=== PATIENT | male | born 1960 | race Two or more races ===

== ENCOUNTER → 2023-07-13 | Outpatient (CLI) | payer OTHER ==
[2023-07-13 18:46] LABS: ALT 17 U/L (10-49); AST 18 U/L (14-35); Albumin 4.2 g/dL (3.8-4.9); Albumin/Globulin Ratio 1.91 Ratio (1.60-3.17); Alkaline Phosphatase 72 U/L (41-126); BUN/Creat Ratio 8.78 Ratio (12.00-20.00); Blood Urea Nitrogen 7.9 mg/dL (9.0-27.0); Calcium 9.4 mg/dL (8.7-10.3); Carbon Dioxide 25.9 mmol/L (21.6-31.8); Chloride 96 mmol/L (96-109); Globulin 2.2 g/dL (1.6-3.3); Glucose 99 mg/dL (70-110); Potassium 4.1 mmol/L (3.5-5.5); Sodium 134 mmol/L (135-145); Total Bilirubin 0.5 mg/dL (0.3-1.2); Total Protein 6.4 g/dL (6.2-8.2)
[2023-07-13 19:31] LABS: Appearance,Urine Clear (Clear); Bilirubin,Urine Negative (Negative); Blood,Urine Negative (Negative); Color,Urine Yellow (Yellow); Ketones,Urine Negative (Negative); Nitrite,Urine Negative (Negative); Urobilinogen,Urine 0.2 E.U./DL
[2023-07-13 19:38] LABS: Bacteria,Urine None Seen (None Seen)
== END | disposition home or self-care (01) ==
LOC: LABWHC1 12:19
PROVIDERS: ATTEND Nurse Practitioner Family
DX: E87.1 Hypo-osmolality and hyponatremia (principal); N39.0 Urinary tract infection, site not specified
CPT/HCPCS: 36415; 80053; 81001; 83930; 83935; 84300

== ENCOUNTER 2025-02-06 12:59 | Emergency (ER) | payer OTHER ==
[2025-02-06 13:11] LABS: Glucose,Whole Blood 115 mg/dL (70-110)
[2025-02-06 13:42] LABS: Basophils # (A) 0.05 10*3/uL (0.00-0.10); Basophils % (A) 0.4 %; Eosinophils # (A) 0.05 10*3/uL (0.04-0.35); Eosinophils % (A) 0.4 %; HCT 37.2 % (39.6-50.0); HGB 13.8 g/dL (13.0-17.0); Lymphocytes # (A) 1.15 10*3/uL (0.90-5.00); Lymphocytes % (A) 8.1 %; MCH 30.3 pg (27.0-32.0); MCHC 37.1 g/dL (32.0-37.0); MCV 81.6 fL (80.0-97.0); Mean Platelet Volume 10.3 fL (9.5-12.2); Monocytes # (A) 1.42 10*3/uL (0.20-1.00); Neutrophils # (A) 11.26 10*3/uL (1.80-7.70); Neutrophils % (A) 79.3 %; Platelet Count 314 10*3/uL (140-440); RBC 4.56 10*6/uL (4.40-5.60); RDW 11.7 % (11.5-14.5); WBC 14.19 10*3/uL (4.50-10.00)
--- NOTE | 2025-02-06 13:43 | ED ---
Altered Mental Status HPI - General Source: patient, family, RN notes reviewed Mode of arrival: ambulatory Limitations: no limitations <Federico Lees - Last Filed: 02/06/25 13:42> - General Source: patient, family, RN notes reviewed Mode of arrival: ambulatory Limitations: no limitations - History of Present Illness MD Complaint: confusion <Gabriela Fuller - Last Filed: 02/06/25 19:32> - General Chief Complaint: Altered Mental Status Stated Complaint: N/V/Confusion Time Seen by Provider: 02/06/25 13:15 - History of Present Illness Initial Comments: Quick note 64-year-old male presents emergency department with chief complaint of increasing belching, nausea, episode of vomiting and confusion. Patient symptoms have been on and off last week was seen by PCP told there was he more likely just had a common cold there was no evidence of UTI. Patient states symptoms have worsened within the hour states that he has had some increasing confusion. Denies any chest pain shortness of breath headache or dizziness. (Federico Lees) This is a 64-year-old male who presents to the emergency department for nausea, vomiting, and confusion. States that he has been dealing with nausea and vomiting for the last couple of days. He last threw up this morning, but does not currently feel nauseous. Denies any abdominal pain. Family is concerned that he has been somewhat confused. Patient is alert and oriented x 4. They state that he just seems to be walking off in conversation like he is not interested. Patient states that he does not feel confused but does admit to doing this. Denies any headaches or visual changes. Denies any chest pain or shortness of breath. (Gabriela Fuller) - Related Data Allergies Allergy/AdvReac Type Severity Reaction Status Date / Time No Known Allergies Allergy Verified 02/06/25 13:11 Review of Systems ROS Other: All systems not noted in ROS Statement are negative. <Federico Lees - Last Filed: 02/06/25 13:42> ROS Other: All systems not noted in ROS Statement are negative. <Gabriela Fuller - Last Filed: 02/06/25 19:32> ROS Statement: Those systems with pertinent positive or pertinent negative responses have been documented in the HPI. Past Medical History Past Medical History: Renal Disease History of Any Multi-Drug Resistant Organisms: None Reported Past Surgical History: No Surgical Hx Reported Past Psychological History: No Psychological Hx Reported Smoking Status: Never smoker Past Alcohol Use History: None Reported Past Drug Use History: None Reported <Federico Lees - Last Filed: 02/06/25 13:42> General Exam Limitations: no limitations <Federico Lees - Last Filed: 02/06/25 13:42> Limitations: no limitations General appearance: alert, in no apparent distress Head exam: Present: atraumatic, normocephalic, normal inspection Eye exam: Present: normal appearance, PERRL, EOMI. Absent: scleral icterus, conjunctival injection, periorbital swelling Respiratory exam: Present: normal lung sounds bilaterally. Absent: respiratory distress, wheezes, rales, rhonchi, stridor Cardiovascular Exam: Present: regular rate, normal rhythm GI/Abdominal exam: Present: soft, normal bowel sounds. Absent: distended, tenderness, guarding, rebound, rigid Neurological exam: Present: alert, oriented X3, CN II-XII intact Psychiatric exam: Present: normal affect, normal mood Skin exam: Present: warm, dry, intact, normal color. Absent: rash <Gabriela Fuller - Last Filed: 02/06/25 19:32> - General Exam Comments Initial Comments: Visual Physical Exam Vital signs reviewed General: Well-appearing, nontoxic, no acute distress. Head: Normocephalic, atraumatic Eyes: PERRLA, EOMI ENT: Airway patent Chest: Nonlabored breathing Skin: No visual rash, normal skin tone Neuro: Alert and oriented 3 Musculoskeletal: No gross abnormalities (Federico Lees) Course Vital Signs 02/06/25 02/06/25 02/06/25 13:04 16:11 17:55 Temperature 98.3 F 98.5 F Pulse Rate 125 H 99 95 Respiratory 18 18 18 Rate Blood Pressure 110/79 125/80 113/72 O2 Sat by Pulse 98 95 95 Oximetry Medical Decision Making - Lab Data Result diagrams: 02/06/25 13:33 <Federico Lees - Last Filed: 02/06/25 13:42> - Lab Data Result diagrams: 02/06/25 13:33 02/06/25 13:33 - Radiology Data Radiology results: report reviewed, image reviewed <Gabriela Fuller - Last Filed: 02/06/25 19:32> - Medical Decision Making I completed the quick note portion of this chart signed Federico Lees PA-C (Federico Lees) This is a 64-year-old male who presents to the emergency department for nausea/vomiting and some confusion. Was pt. sent in by a medical professional or institution? @ -No Did you speak to anyone other than the patient for history? @ -Yes, family member advised that he seems somewhat confused in conversation. Did you review nursing and triage notes? @ -Yes, and I agree, it is accurate with regards to the patient's symptoms. Were old charts reviewed? @ -No Differential Diagnosis? @ -Differential Nausea and Vomiting: Gastroenteritis, cholecystitis, appendicitis, pancreatitis, migraine, benign positional vertigo, food borne illness, pyelonephritis, irritable bowel syndrome, influenza, Covid, GERD, incarcerated hernia, intestinal obstruction, this is not meant to be an all-inclusive list. EKG interpreted by me (3pts min.)? @ -EKG interpreted by me demonstrating the following: Sinus tachycardia. Ventricular rate 120 bpm, MA interval 126 ms, QRS duration 119 ms, QTc 477 ms. X-rays interpreted by me (1pt min.)? @ -Chest x-ray obtained, my interpretation identifies no localized consolidations or infiltrates. CT interpreted by me (1pt min.)? @ -CT scan of the brain obtained. My interpretation identifies no acute intracranial hemorrhage or mass effect. U/S interpreted by me (1pt. min.)? @ -Not obtained What testing was considered but not performed? (CT, X-rays, U/S, labs)? Why? @ -None What meds were considered but not given? Why? @ -None Did you discuss the management of the patient with other professionals? @ -No Did you reconcile home meds? @ -No Was smoking cessation discussed for >3mins.? @ -No Was critical care preformed (if so, how long)? @ -No Were there social determinants of health that impacted care today? How? (Homelessness, low income, unemployed, alcoholism, drug addiction, transportation, low edu. Level, literacy, decrease access to med. care, residential, rehab)? @ -No Was there de-escalation of care discussed even if they declined? (Discuss DNR or withdrawal of care, Hospice)? @ -No What co-morbidities impacted this encounter? (DM, HTN, Smoking, COPD, CAD, Cancer, CVA, Hep., AIDS, mental health diagnosis, sleep apnea, morbid obesity)? @ -None Was patient admitted / discharged? @ -Discharged. Lab work demonstrates leukocytosis with a white blood cell count of 14.19. He also has hyponatremia with a sodium of 127 and some signs of dehydration with a BUN of 36. Urinalysis not suggestive of infection. Chest x- ray reveals no acute process. CT scan of the brain obtained revealing no acute findings. We discussed that the hyponatremia can contribute to confusion. 1 L of normal saline administered. Given the hyponatremia with confusion I recommended admission for further management. However, patient declined. He states that he has had problems with hyponatremia in the past and would rather just follow-up with his PCP about this. Patient was alert and oriented x 4 at the time of ED evaluation. He was given very strict return parameters and advis ed to have very close follow-up with his PCP. Family advised that they are also comfortable taking him home and not overly concerned about this value. Patient discharged home in stable condition. Case discussed with ED attending Dr. Barnhart. Return precautions reviewed in depth, the patient is instructed to return to the emergency department with any new, worsening, or concerning symptoms. Patient verbalized understanding. Undiagnosed new problem with uncertain prognosis? @ -None Drug Therapy requiring intensive monitoring for toxicity (Heparin, Nitro, Insulin, Cardizem)? @ -None Were any procedures done? @ -None Diagnosis/symptom? @ -Hyponatremia, confusion Acute, or Chronic, or Acute on Chronic? @ -Acute Uncomplicated (without systemic symptoms) or Complicated (systemic symptoms)? @ -Uncomplicated Side effects of treatment? @ -None Exacerbation, Progression, or Severe Exacerbation] @ -Not applicable Poses a threat to life or bodily function? @ -Unclear (Gabriela Fuller) - Lab Data Lab Results 02/06/25 02/06/25 02/06/25 Range/Units 13:10 13:33 13:33 WBC 14.19 H (4.50-10.00) 10*3/uL RBC 4.56 (4.40-5.60) 10*6/uL Hgb 13.8 (13.0-17.0) g/dL Hct 37.2 L (39.6-50.0) % MCV 81.6 (80.0-97.0) fL MCH 30.3 (27.0-32.0) pg MCHC 37.1 H (32.0-37.0) g/dL Plt Count 314 (140-440) 10*3/uL MPV 10.3 (9.5-12.2) fL Immature Gran % (Auto) 1.8 % Neutrophils % 79.3 % Lymphocytes % 8.1 % Monocytes % 10.0 % Eosinophils % 0.4 % Basophils % 0.4 % Immature Gran # 0.26 H (0.00-0.04) 10*3/uL Neutrophils # 11.26 H (1.80-7.70) 10*3/uL Lymphocytes # 1.15 (0.90-5.00) 10*3/uL Monocytes # 1.42 H (0.20-1.00) 10*3/uL Eosinophils # 0.05 (0.04-0.35) 10*3/uL Basophils # 0.05 (0.00-0.10) 10*3/uL PT (10.0-12.5) sec INR (<1.2) APTT (22.0-30.0) sec Sodium 127 L (137-145) mmol/L Potassium 3.6 (3.5-5.1) mmol/L Chloride 86 L (98-107) mmol/L Carbon Dioxide 28 (22-30) mmol/L Anion Gap 13 mmol/L BUN 36 H (9-20) mg/dL Creatinine 0.73 (0.66-1.25) mg/dL Est GFR (CKD-EPI)AfAm >90 (>60 ml/min/1.73 sqM) Est GFR (CKD-EPI)NonAf >90 (>60 ml/min/1.73 sqM) Glucose 118 H (74-99) mg/dL POC Glucose (mg/dL) 115 H (70-110) mg/dL POC Glu Detail Supervisor ID Doe Patterson Plasma Lactic Acid [place] (0.7-2.0) mmol/L Calcium 9.1 (8.4-10.2) mg/dL Magnesium (1.6-2.3) mg/dL Total Bilirubin 1.4 H (0.2-1.3) mg/dL AST 25 (17-59) U/L ALT 34 (4-49) U/L Alkaline Phosphatase 78 (38-126) U/L Troponin I (0.000-0.034) ng/mL Total Protein 6.1 L (6.3-8.2) g/dL Albumin 3.2 L (3.5-5.0) g/dL Urine Color Urine Appearance (Clear) Urine pH (5.0-8.0) Ur Specific [place] (1.001-1.035) Urine Protein (Negative) Urine Glucose (UA) (Negative) Urine Ketones (Negative) Urine Blood (Negative) Urine Nitrite (Negative) Urine Bilirubin (Negative) Urine Urobilinogen (<2.0) mg/dL Ur Leukocyte Esterase (Negative) Urine RBC (0-5) /hpf Urine WBC (0-5) /hpf Hyaline Casts (0-2) /lpf Urine Mucus (None) /hpf Urine Opiates Screen (NotDetected) Ur Oxycodone Screen (NotDetected) Urine Methadone Screen (NotDetected) Ur Barbiturates Screen (NotDetected) U Tricyclic Antidepress (NotDetected) Ur Phencyclidine Scrn (NotDetected) Ur Amphetamines Screen (NotDetected) U Methamphetamines Scrn (NotDetected) U Benzodiazepines Scrn (NotDetected) Urine Cocaine Screen (NotDetected) U Marijuana (THC) Screen (NotDetected) 02/06/25 02/06/25 02/06/25 Range/Units 13:33 13:33 15:42 WBC (4.50-10.00) 10*3/uL RBC (4.40-5.60) 10*6/uL Hgb (13.0-17.0) g/dL Hct (39.6-50.0) % MCV (80.0-97.0) fL MCH (27.0-32.0) pg MCHC (32.0-37.0) g/dL Plt Count (140-440) 10*3/uL MPV (9.5-12.2) fL Immature Gran % (Auto) % Neutrophils % % Lymphocytes % % Monocytes % % Eosinophils % % Basophils % % Immature Gran # (0.00-0.04) 10*3/uL Neutrophils # (1.80-7.70) 10*3/uL Lymphocytes # (0.90-5.00) 10*3/uL Monocytes # (0.20-1.00) 10*3/uL Eosinophils # (0.04-0.35) 10*3/uL Basophils # (0.00-0.10) 10*3/uL PT 13.0 H (10.0-12.5) sec INR 1.2 H (<1.2) APTT 21.6 L (22.0-30.0) sec Sodium (137-145) mmol/L Potassium (3.5-5.1) mmol/L Chloride (98-107) mmol/L Carbon Dioxide (22-30) mmol/L Anion Gap mmol/L BUN (9-20) mg/dL Creatinine (0.66-1.25) mg/dL Est GFR (CKD-EPI)AfAm (>60 ml/min/1.73 sqM) Est GFR (CKD-EPI)NonAf (>60 ml/min/1.73 sqM) Glucose (74-99) mg/dL POC Glucose (mg/dL) (70-110) mg/dL POC Glu Detail Supervisor ID Plasma Lactic Acid [place] (0.7-2.0) mmol/L Calcium (8.4-10.2) mg/dL Magnesium 2.0 (1.6-2.3) mg/dL Total Bilirubin (0.2-1.3) mg/dL AST (17-59) U/L ALT (4-49) U/L Alkaline Phosphatase (38-126) U/L Troponin I <0.012 (0.000-0.034) ng/mL Total Protein (6.3-8.2) g/dL Albumin (3.5-5.0) g/dL Urine Color Urine Appearance (Clear) Urine pH (5.0-8.0) Ur Specific [place] (1.001-1.035) Urine Protein (Negative) Urine Glucose (UA) (Negative) Urine Ketones (Negative) Urine Blood (Negative) Urine Nitrite (Negative) Urine Bilirubin (Negative) Urine Urobilinogen (<2.0) mg/dL Ur Leukocyte Esterase (Negative) Urine RBC (0-5) /hpf Urine WBC (0-5) /hpf Hyaline Casts (0-2) /lpf Urine Mucus (None) /hpf Urine Opiates Screen (NotDetected) Ur Oxycodone Screen (NotDetected) Urine Methadone Screen (NotDetected) Ur Barbiturates Screen (NotDetected) U Tricyclic Antidepress (NotDetected) Ur Phencyclidine Scrn (NotDetected) Ur Amphetamines Screen (NotDetected) U Methamphetamines Scrn (NotDetected) U Benzodiazepines Scrn (NotDetected) Urine Cocaine Screen (NotDetected) U Marijuana (THC) Screen (NotDetected) 02/06/25 02/06/25 Range/Units 15:42 16:18 WBC (4.50-10.00) 10*3/uL RBC (4.40-5.60) 10*6/uL Hgb (13.0-17.0) g/dL Hct (39.6-50.0) % MCV (80.0-97.0) fL MCH (27.0-32.0) pg MCHC (32.0-37.0) g/dL Plt Count (140-440) 10*3/uL MPV (9.5-12.2) fL Immature Gran % (Auto) % Neutrophils % % Lymphocytes % % Monocytes % % Eosinophils % % Basophils % % Immature Gran # (0.00-0.04) 10*3/uL Neutrophils # (1.80-7.70) 10*3/uL Lymphocytes # (0.90-5.00) 10*3/uL Monocytes # (0.20-1.00) 10*3/uL Eosinophils # (0.04-0.35) 10*3/uL Basophils # (0.00-0.10) 10*3/uL PT (10.0-12.5) sec INR (<1.2) APTT (22.0-30.0) sec Sodium (137-145) mmol/L Potassium (3.5-5.1) mmol/L Chloride (98-107) mmol/L Carbon Dioxide (22-30) mmol/L Anion Gap mmol/L BUN (9-20) mg/dL Creatinine (0.66-1.25) mg/dL Est GFR (CKD-EPI)AfAm (>60 ml/min/1.73 sqM) Est GFR (CKD-EPI)NonAf (>60 ml/min/1.73 sqM) Glucose (74-99) mg/dL POC Glucose (mg/dL) (70-110) mg/dL POC Glu Detail Supervisor ID Plasma Lactic Acid [place] 1.8 (0.7-2.0) mmol/L Calcium (8.4-10.2) mg/dL Magnesium (1.6-2.3) mg/dL Total Bilirubin (0.2-1.3) mg/dL AST (17-59) U/L ALT (4-49) U/L Alkaline Phosphatase (38-126) U/L Troponin I (0.000-0.034) ng/mL Total Protein (6.3-8.2) g/dL Albumin (3.5-5.0) g/dL Urine Color Yellow Urine Appearance Clear (Clear) Urine pH 6.0 (5.0-8.0) Ur Specific [place] 1.026 (1.001-1.035) Urine Protein 1+ H (Negative) Urine Glucose (UA) Negative (Negative) Urine Ketones 1+ H (Negative) Urine Blood Negative (Negative) Urine Nitrite Negative (Negative) Urine Bilirubin Negative (Negative) Urine Urobilinogen 2.0 (<2.0) mg/dL Ur Leukocyte Esterase Negative (Negative) Urine RBC 2 (0-5) /hpf Urine WBC 8 H (0-5) /hpf Hyaline Casts 4 H (0-2) /lpf Urine Mucus Occasional H (None) /hpf Urine Opiates Screen Not Detected (NotDetected) Ur Oxycodone Screen Not Detected (NotDetected) Urine Methadone Screen Not Detected (NotDetected) Ur Barbiturates Screen Not Detected (NotDetected) U Tricyclic Antidepress Not Detected (NotDetected) Ur Phencyclidine Scrn Not Detected (NotDetected) Ur Amphetamines Screen Not Detected (NotDetected) U Methamphetamines Scrn Not Detected (NotDetected) U Benzodiazepines Scrn Detected H (NotDetected) Urine Cocaine Screen Not Detected (NotDetected) U Marijuana (THC) Screen Not Detected (NotDetected) Disposition <Federico Lees - Last Filed: 02/06/25 13:42> Is patient prescribed a controlled substance at d/c from ED?: No Time of Disposition: 19:02 <Gabriela Fuller - Last Filed: 02/06/25 19:32> Clinical Impression: Hyponatremia, Confusion Disposition: HOME SELF-CARE Instructions (If sedation given, give patient instructions): Hyponatremia (ED) Additional Instructions: Return to the emergency department with any new, worsening, or concerning symptoms. Follow up with your primary care provider in 1-2 days. Referrals: Nonstaff,Physician [REFERRING] - 1-2 days
[2025-02-06 14:03] LABS: ALT 34 U/L (4-49); AST 25 U/L (17-59); African American GFR (CKD) >90 (>60 ml/min/1.73 sqM); Albumin 3.2 g/dL (3.5-5.0); Alkaline Phosphatase 78 U/L (38-126); Anion Gap 13 mmol/L; Blood Urea Nitrogen 36 mg/dL (9-20); Calcium 9.1 mg/dL (8.4-10.2); Carbon Dioxide 28 mmol/L (22-30); Chloride 86 mmol/L (98-107); Glucose 118 mg/dL (74-99); Non-African American GFR(CKD) >90 (>60 ml/min/1.73 sqM); Potassium 3.6 mmol/L (3.5-5.1); Sodium 127 mmol/L (137-145); Total Bilirubin 1.4 mg/dL (0.2-1.3); Total Protein 6.1 g/dL (6.3-8.2)
--- NOTE | 2025-02-06 14:32 | XR ---
EXAMINATION TYPE: XR chest 2V DATE OF EXAM: 02/06/2025 2:12 PM COMPARISON: None CLINICAL INDICATION: Male, 64 years old with history of altered mental status; [facility] TECHNIQUE: XR chest 2V Frontal and lateral views of the chest. FINDINGS: Lungs/Pleura: There is no evidence of pleural effusion, focal consolidation, or pneumothorax. Right midlung fissure noted. Pulmonary vascularity: Unremarkable. Heart/mediastinum: Cardiomediastinal silhouette is unremarkable. Musculoskeletal: No acute osseous pathology. IMPRESSION: No acute cardiopulmonary disease/process. [facility], , 02/06/2025 2:30 PM
[2025-02-06] MEDS: SODIUM CHLORIDE 0.9% 1,000 ML IV ONE (16:17)
[2025-02-06 16:37] LABS: INR 1.2 (<1.2); Partial Thromboplastin Time 21.6 sec (22.0-30.0)
[2025-02-06 17:45] LABS: Appearance,Urine Clear (Clear); Bilirubin,Urine Negative (Negative); Blood,Urine Negative (Negative); Color,Urine Yellow; Glucose,Urine (UA) Negative (Negative); Hyaline Casts,Urine 4 /lpf (0-2); Ketones,Urine 1+ (Negative); Leukocyte Esterase,Urine Negative (Negative); Mucus,Urine Occasional /hpf; Nitrite,Urine Negative (Negative); Protein,Urine 1+ (Negative); RBC,Urine 2 /hpf (0-5); Specific Gravity,Urine 1.026 (1.001-1.035); WBC,Urine 8 /hpf (0-5)
[2025-02-06 17:47] LABS: Amphetamine Screen,Urine Not Detected (NotDetected); Barbiturate Screen,Urine Not Detected (NotDetected); Benzodiazepines Screen,Urine Detected (NotDetected); Cocaine Screen,Urine Not Detected (NotDetected); Methadone Screen, Urine Not Detected (NotDetected); Opiate Screen,Urine Not Detected (NotDetected); Oxycodone Screen, Urine Not Detected (NotDetected); Phencyclidine Screen,Urine Not Detected (NotDetected); Tricyclic Antidepressant,Urine Not Detected (NotDetected); Urn Cannabinoid Scrn Not Detected (NotDetected)
[2025-02-06 17:57] VITALS: TEMP 98.5
--- NOTE | 2025-02-06 18:48 | CT ---
EXAMINATION TYPE: CT brain wo con CT DLP: 1097.9 mGycm, Automated exposure control for dose reduction was used. DATE OF EXAM: 02/06/2025 6:36 PM COMPARISON: None. CLINICAL INDICATION:Male, 64 years old with history of Confusion, ams, confusion TECHNIQUE: Brain: Axial CT images of the brain were obtained with coronal and sagittal reformats created and rev iewed. Contrast used: None. Oral contrast used: None. FINDINGS: Brain: Extra-axial spaces: No abnormal extra-axial fluid collections. Ventricular system: Dilatation in proportion to cerebral atrophy. Cerebral parenchyma: Cerebral atrophy. No acute intraparenchymal hemorrhage or mass effect. The hayes -white junction is well differentiated. Cerebellum: Unremarkable. Mass effect: No evidence of midline shift. Intracranial vasculature: Atherosclerotic calcifications of the intracranial vessels. Soft tissues: Normal. Calvarium/osseous structures: No depressed skull fracture. Paranasal sinuses and mastoid air cells: Mild scattered paranasal sinus disease. Visualized orbits: Bilateral aphakia IMPRESSION: No acute intracranial process. [facility], , 02/06/2025 6:46 PM
[2025-02-06 19:29] VITALS: BP 106/74; PULSE 98; RESP 20
== END 2025-02-06 19:29 | disposition home or self-care (01) ==
LOC: EC 12:59
DX: E87.1 Hypo-osmolality and hyponatremia (principal); R41.0 Disorientation, unspecified
CPT/HCPCS: 36415; 70450; 71046; 80053; 80306; 81001; 83605; 83735; 84484; 85025; 85610; 85730; 93005; 96360; 96361; 99285

== ENCOUNTER 2025-02-07 21:11 | Emergency (ER) | payer OTHER ==
[2025-02-07 21:34] LABS: Basophils # (A) 0.08 10*3/uL (0.00-0.10); Basophils % (A) 0.7 %; Eosinophils # (A) 0.14 10*3/uL (0.04-0.35); Eosinophils % (A) 1.2 %; HCT 36.5 % (39.6-50.0); HGB 13.0 g/dL (13.0-17.0); Lymphocytes # (A) 1.53 10*3/uL (0.90-5.00); Lymphocytes % (A) 13.1 %; MCH 30.0 pg (27.0-32.0); MCHC 35.6 g/dL (32.0-37.0); MCV 84.1 fL (80.0-97.0); Monocytes # (A) 1.35 10*3/uL (0.20-1.00); Monocytes % (A) 11.6 %; Neutrophils # (A) 7.98 10*3/uL (1.80-7.70); Neutrophils % (A) 68.4 %; Platelet Count 340 10*3/uL (140-440); RBC 4.34 10*6/uL (4.40-5.60); RDW 11.9 % (11.5-14.5); WBC 11.66 10*3/uL (4.50-10.00)
[2025-02-07 21:56] LABS: ALT 24 U/L (4-49); AST 23 U/L (17-59); African American GFR (CKD) >90 (>60 ml/min/1.73 sqM); Albumin 2.9 g/dL (3.5-5.0); Alkaline Phosphatase 70 U/L (38-126); Amylase 59 U/L (30-110); Anion Gap 10 mmol/L; Blood Urea Nitrogen 20 mg/dL (9-20); Calcium 8.6 mg/dL (8.4-10.2); Carbon Dioxide 27 mmol/L (22-30); Chloride 92 mmol/L (98-107); Glucose 113 mg/dL (74-99); Lipase 222 U/L (23-300); Non-African American GFR(CKD) >90 (>60 ml/min/1.73 sqM); Potassium 3.4 mmol/L (3.5-5.1); Sodium 129 mmol/L (137-145); Total Protein 5.6 g/dL (6.3-8.2)
--- NOTE | 2025-02-07 21:58 | ED ---
Abdominal Pain HPI - General Source: patient, RN notes reviewed Mode of arrival: ambulatory Limitations: no limitations <Carlos Alberto Villasenor - Last Filed: 02/07/25 21:56> <Jigna Bower - Last Filed: 02/08/25 09:08> - General Chief Complaint: Abdominal Pain Stated Complaint: Abd Pain Time Seen by Provider: 02/07/25 21:28 - History of Present Illness Initial Comments: Quick note: This is a 64-year-old male with history of renal disease presenting for abdominal pain x 3 days. Patient also endorses confusion/lethargy with nausea/vomiting. Endorses history of urinary catheterization, UTI and urinary retention as well as hyponatremia. Patient was seen in this ER yesterday with diagnosis of dehydration and hyponatremia. (Carlos Alberto Villasenor) Patient is a 64-year-old gentleman presenting today for nausea and vomiting for 3 days. History given by patient and caregivers who brought patient to the ER. Patient states whenever he attempts to eat he feels nauseas and sometimes throws up. Currently denies abdominal pain. Emesis is NBNB. Patient has been able to keep down liquids and most of his medications. He denies any chest pain or shortness of breath. Last BM was yesterday and was a normal soft stool for the patient. Stools are nonmelanotic, denies hematochezia. Denies dysuria, frequency or hematuria. No fevers. Denies dizizness, numbness or weakness. Was seen yesterday and was told he was dehydation, given IV fluids and ultimately discharged home. No prior abdominal surgeries. Patient is currently oriented x4 and would like to go home. (Jigna Bower) - Related Data Previous Rx's Medication Instructions Recorded Cephalexin [Keflex] 500 mg PO Q6HR 10 Days #40 cap 02/08/25 Allergies Allergy/AdvReac Type Severity Reaction Status Date / Time No Known Allergies Allergy Verified 02/07/25 21:14 Review of Systems ROS Other: All systems not noted in ROS Statement are negative. <Carlos Alberto Villasenor - Last Filed: 02/07/25 21:56> ROS Other: All systems not noted in ROS Statement are negative. <Jigna Bower - Last Filed: 02/08/25 09:08> ROS Statement: Those systems with pertinent positive or pertinent negative responses have been documented in the HPI. Past Medical History Past Medical History: Renal Disease History of Any Multi-Drug Resistant Organisms: None Reported Past Surgical History: No Surgical Hx Reported Past Psychological History: No Psychological Hx Reported Smoking Status: Never smoker Past Alcohol Use History: None Reported Past Drug Use History: None Reported <Carlos Alberto Villasenor - Last Filed: 02/07/25 21:56> General Exam Limitations: no limitations <Jw Villasenorling - Last Filed: 02/07/25 21:56> <Jigna Bower - Last Filed: 02/08/25 09:08> - General Exam Comments Initial Comments: Visual Physical Exam Vital signs reviewed General: Well-appearing, nontoxic, no acute distress. Head: Normocephalic, atraumatic Eyes: PERRLA, EOMI ENT: Airway patent Chest: Nonlabored breathing Skin: No visual rash, normal skin tone Neuro: Alert and oriented 3 Musculoskeletal: No gross abnormalities (Carlos Alberto Villasenor) PE: CONSTITUTIONAL: No apparent distress, well appearing SKIN: Warm, dry, no jaundice, hives or petechiae EYES: Pupils are equally round, extraocular movements intact without nystagmus, clear conjunctiva, non-icteric sclera HENT: Normocephalic, atraumatic, moist mucus membranes, oropharynx clear without exudates NECK: , Full range of motion, normal appearance PULMONARY: Clear to auscultation without wheezes, rhonchi, or rales, normal excursion, no accessory muscle use and no stridor CARDIOVASCULAR: tachycarida, Regular rate, rhythm, normal S1 and S2. No appreciated murmurs, rubs or gallops. Strong radial pulses with intact distal perfusion. GASTROINTESTINAL: Soft, active bowel sounds throughout, non-tender, non- distended, no palpable masses, no rebound or guarding. No hepatosplenomegaly GENITOURINARY: MUSCULOSKELETAL: Extremities have no gross deformity, no edema, redness, or swelling. NEUROLOGIC:_a/o x 3, GCS 15, normal mentation and speech. Moves all extremities x 4 without motor or sensory deficit PSYCHIATRIC:_normal mood and affect, thought process is clear and linear with (Jigna Bower) Course Vital Signs 02/07/25 02/08/25 21:12 00:16 Temperature 98 F 98.7 F Pulse Rate 112 H 110 H Respiratory 18 16 Rate Blood Pressure 119/82 121/87 O2 Sat by Pulse 96 97 Oximetry Medical Decision Making - Lab Data Result diagrams: 02/07/25 21:21 <Carlos Alberto Villasenor - Last Filed: 02/07/25 21:56> - Lab Data Result diagrams: 02/07/25 21:21 02/07/25 21:21 <Jigna Bower - Last Filed: 02/08/25 09:08> - Medical Decision Making I completed the quick note portion of this chart signed EVENS Pierre (Carlos Alberto Villasenor) Was pt. sent in by a medical professional or institution (MYKEL Mata, [employer]CHITECT[employer]DEL [employer], urgent care, hospital, or detention...) When possible be specific @Patient was brought in by his [facility] home staff Did you speak to anyone other than the patient for history (EMS, parent, family, police, friend...)? What history was obtained from this source @ -[[facility] home staff provide additional details of history, stating patient agustín garner has episodes of emesis with solids, has been able to keep down fluids and his medications except for when they are given with solids Did you review nursing and triage notes (agree or disagree)? Why? @ -I reviewed nursing and triage notes- of note reviewed triage/quick note, -pt did not endorse confusion to wildlife enforcement major or myself, pt is oriented and alert on my assessment and behaving appropriately, no further concerns for confusion were brought up by caregivers on my assessment. Were old charts reviewed (outside hosp., previous admission, EMS record, old EKG, old radiological studies, urgent care reports/EKG's, detention records)? Report findings @ -Medical records reviewed-patient was seen here yesterday for similar symptoms, at that time was noted to be "confused" as well however upon further description it was noted the patient is less conversant than normal, CT brain was obtained at that time showed no acute process. Labs showed hyponatremia sodium 127, patient was recommended for admission but ultimately requested discharge as this is a chronic issue for him and was to follow-up with his PCP Differential Diagnosis (chest pain, altered mental status, abdominal pain women, abdominal pain men, vaginal bleeding, weakness, fever, dyspnea, syncope, headache, dizziness, GI bleed, back pain, seizure, CVA, palpatations, mental health, musculoskeletal)? @ -Differential Abdominal Pain Men: Appendicitis, cholecystitis, diverticulosis, ischemic bowel, pancreatitis, hepatitis, UTI, gastroenteritis, incarcerated hernia, bowel obstruction, constipation, inflammatory bowel, hepatitis, peptic ulcer disease, splenic infarction, perforated viscus, testicular torsion, this is not meant to be an all-inclusive list EKG interpreted by me (3pts min.). @ -Question [address] depression in lead V2, J-point elevation at lead V3, otherwise no significant ST elevations or depressions, no arrhythmia, sinus tachycardia with right bundle branch block, rate 105 bpm intervals within acc eptable limits, Compared to EKG performed on 02/06/2025, at that time patient had a right bundle branch block as well, similar J-point elevation in lead V3, 1 mm depression is new in lead V2 otherwise no significant new ST elevations or depressions X-rays interpreted by me (1pt min.). @Personally reviewed chest x-ray see no evidence of consolidations, or pleural effusions CT interpreted by me (1pt min.). @ -None done U/S interpreted by me (1pt. min.). @ -None done What testing was considered but not performed or refused? (CT, X-rays, U/S, labs)? Why? @CT abdomen pelvis was considered however patient currently denies abdominal pain, he has a soft nontender abdomen, benign abdominal exam is afebrile and well-appearing. What meds were considered but not given or refused? Why? @ potassium, IV fluids, offered however pt declined and requested discharge Did you discuss the management of the patient with other professionals (professionals i.e. , PA, ARCHITECTURAL MODEL MAKER, lab, RT, psych nurse, social sciences instructor, hand i blocker, teacher, training officer, case picker)? Give summary @ -No Was smoking cessation discussed for >3mins.? @ -No Was critical care preformed (if so, how long)? @ -No Were there social determinants of health that impacted care today? How? (Homelessness, low income, unemployed, alcoholism, drug addiction, transportation, low edu. Level, literacy, decrease access to med. care, shelter, rehab)? @ -No Was there de-escalation of care discussed even if they declined (Discuss DNR or withdrawal of care, Hospice)? @ -No What co-morbidities impacted this encounter? (DM, HTN, Smoking, COPD, CAD, Cance r, CVA, ARF, Chemo, Hep., AIDS, mental health diagnosis, sleep apnea, morbid obesity)? @ -None Was patient admitted / discharged? Hospital course, mention meds given and route, prescriptions, significant lab abnormalities, going to OR and other pertinent info. @Discharged-Patient is a 64-year-old gentleman presenting with [facility] home staff for nausea and vomiting. Patient was initially seen and assessed by triage provider who ordered preliminary labs and imaging. On my assessment patient is resting comfortably in no acute distress. I obtained patient's permission to perform assessment in the waiting room. He was agreeable. Exam is significant for soft and nontender abdomen. He appears well-hydrated with moist mucous membranes. Mildly tachycardic. No focal neurologic deficits. Labs are s ignificant for mild leukocytosis white blood cell count 11.66, which could be secondary to vomiting, he is mildly hyponatremic with a sodium of 129 however this is improved from yesterday of 127, mildly hypokalemic with potassium 3.4, chloride of 92, lipase 222, troponin undetectable. Patient did a questionable small amount of ST depression in lead V2 otherwise no significant ST elevations or depressions or significant changes from prior EKG. EKG was repeated approximately 10 minutes later without changes. He denies having any chest pain or recently having chest pain or shortness of breath. I did discuss with patient and staff admission due to persistence of symptoms, causing hyponatremia and hypokalemia. Patient and staff are requesting for patient to be discharged at this time as he has been in the waiting room for an extended period of time, is due for his medications and it is past his bedtime. Patient states he would feel more comfortable going home and returning in the morning. Since patient is able to keep down medications and fluids, has a benign abdominal exam, is pass ing stool and not actively vomiting, and will monitored by [facility] staff overnight, I feel this is reasonable. Of note patient is mildly tachycardic, I suspect this may be due to volume depletion. I did offer administration of a liter of IV fluids and potassium prior to discharge however pt and [facility] staff stated they would prefer discharge and encourage pt to drink plenty of electrolyte rich fluids upon returning home. I discussed with patient and caregivers that should pt's symptoms continue into the morning or worsen, they need to return to the ED immediately. Pt and caregivers understanding of plan. Of note pt's UA did result and appears to reflect UTI With moderate leukocyte esterase, 58 white cells, white blood cell clumps, rare bacteria. I did discuss this with patient and caregivers. He will be discharged home with Keflex starter pack and Zofran in addition to a prescription for Keflex. In my medical judgment there is currently no evidence of an immediate life- threatening or surgical condition. Discharge is therefore indicated at this time. Discharge treatment instructions, follow up instructions, and appropriate emergency department return precautions were discussed with the patient and/or medical decision maker. Patient and/or medical decision maker expressed unders tanding of and agreed with the treatment plan, follow up instructions, and emergency department return precaution. All patient's and/or medical decision maker's questions were answered. The patient was instructed to return to the ED for any changes in symptoms, persistent symptoms, inability to obtain proper follow-up or for any further concerns. Patient received verbal and written instructions for this condition. Undiagnosed new problem with uncertain prognosis? @ -No Drug Therapy requiring intensive monitoring for toxicity (Heparin, Nitro, Insulin, Cardizem)? @ -No Were any procedures done? @ -No Diagnosis/symptom? Nause and vomiting, hypokalemia, hyponatremia Acute, or Chronic, or Acute on Chronic? @acute Uncomplicated (without systemic symptoms) or Complicated (systemic symptoms)? @ -complicated Side effects of treatment? @ -No Exacerbation, Progression, or Severe Exacerbation? @ -No Poses a threat to life or bodily function? How? (Chest pain, [place], [place], pneumonia, PE, COPD, DKA, ARF, appy, cholecystitis, CVA, Diverticulitis, Homicidal, Suicidal, threat to staff... and all critical care pts) @ -No, not at time of discharge (Jigna Bower) - Lab Data Lab Results 02/07/25 02/07/25 02/07/25 Range/Units 21:21 21:21 21:21 WBC 11.66 H (4.50-10.00) 10*3/uL RBC 4.34 L (4.40-5.60) 10*6/uL Hgb 13.0 (13.0-17.0) g/dL Hct 36.5 L (39.6-50.0) % MCV 84.1 (80.0-97.0) fL MCH 30.0 (27.0-32.0) pg MCHC 35.6 (32.0-37.0) g/dL Plt Count 340 (140-440) 10*3/uL MPV 9.9 (9.5-12.2) fL Immature Gran % (Auto) 5.0 % Neutrophils % 68.4 % Lymphocytes % 13.1 % Monocytes % 11.6 % Eosinophils % 1.2 % Basophils % 0.7 % Immature Gran # 0.58 H (0.00-0.04) 10*3/uL Neutrophils # 7.98 H (1.80-7.70) 10*3/uL Lymphocytes # 1.53 (0.90-5.00) 10*3/uL Monocytes # 1.35 H (0.20-1.00) 10*3/uL Eosinophils # 0.14 (0.04-0.35) 10*3/uL Basophils # 0.08 (0.00-0.10) 10*3/uL PT (10.0-12.5) sec INR (<1.2) APTT (22.0-30.0) sec Sodium 129 L (137-145) mmol/L Potassium 3.4 L (3.5-5.1) mmol/L Chloride 92 L (98-107) mmol/L Carbon Dioxide 27 (22-30) mmol/L Anion Gap 10 mmol/L BUN 20 (9-20) mg/dL Creatinine 0.70 (0.66-1.25) mg/dL Est GFR (CKD-EPI)AfAm >90 (>60 ml/min/1.73 sqM) Est GFR (CKD-EPI)NonAf >90 (>60 ml/min/1.73 sqM) Glucose 113 H (74-99) mg/dL Plasma Lactic Acid [place] 1.0 (0.7-2.0) mmol/L Calcium 8.6 (8.4-10.2) mg/dL Total Bilirubin 1.0 (0.2-1.3) mg/dL AST 23 (17-59) U/L ALT 24 (4-49) U/L Alkaline Phosphatase 70 (38-126) U/L Troponin I (0.000-0.034) ng/mL Total Protein 5.6 L (6.3-8.2) g/dL Albumin 2.9 L (3.5-5.0) g/dL Amylase 59 (30-110) U/L Lipase 222 (23-300) U/L Urine Color Urine Appearance (Clear) Urine pH (5.0-8.0) Ur Specific [place] (1.001-1.035) Urine Protein (Negative) Urine Glucose (UA) (Negative) Urine Ketones (Negative) Urine Blood (Negative) Urine Nitrite (Negative) Urine Bilirubin (Negative) Urine Urobilinogen (<2.0) mg/dL Ur Leukocyte Esterase (Negative) Urine RBC (0-5) /hpf Urine WBC (0-5) /hpf Urine WBC Clumps (None) /hpf Ur Squamous Epith Cells (0-4) /hpf Urine Bacteria (None) /hpf Hyaline Casts (0-2) /lpf Urine Mucus (None) /hpf 02/07/25 02/07/25 02/07/25 Range/Units 22:22 22:22 22:52 WBC (4.50-10.00) 10*3/uL RBC (4.40-5.60) 10*6/uL Hgb (13.0-17.0) g/dL Hct (39.6-50.0) % MCV (80.0-97.0) fL MCH (27.0-32.0) pg MCHC (32.0-37.0) g/dL Plt Count (140-440) 10*3/uL MPV (9.5-12.2) fL Immature Gran % (Auto) % Neutrophils % % Lymphocytes % % Monocytes % % Eosinophils % % Basophils % % Immature Gran # (0.00-0.04) 10*3/uL Neutrophils # (1.80-7.70) 10*3/uL Lymphocytes # (0.90-5.00) 10*3/uL Monocytes # (0.20-1.00) 10*3/uL Eosinophils # (0.04-0.35) 10*3/uL Basophils # (0.00-0.10) 10*3/uL PT 13.5 H (10.0-12.5) sec INR 1.3 H (<1.2) APTT 21.7 L (22.0-30.0) sec Sodium (137-145) mmol/L Potassium (3.5-5.1) mmol/L Chloride (98-107) mmol/L Carbon Dioxide (22-30) mmol/L Anion Gap mmol/L BUN (9-20) mg/dL Creatinine (0.66-1.25) mg/dL Est GFR (CKD-EPI)AfAm (>60 ml/min/1.73 sqM) Est GFR (CKD-EPI)NonAf (>60 ml/min/1.73 sqM) Glucose (74-99) mg/dL Plasma Lactic Acid [place] (0.7-2.0) mmol/L Calcium (8.4-10.2) mg/dL Total Bilirubin (0.2-1.3) mg/dL AST (17-59) U/L ALT (4-49) U/L Alkaline Phosphatase (38-126) U/L Troponin I <0.012 (0.000-0.034) ng/mL Total Protein (6.3-8.2) g/dL Albumin (3.5-5.0) g/dL Amylase (30-110) U/L Lipase (23-300) U/L Urine Color Yellow Urine Appearance Clear (Clear) Urine pH 6.0 (5.0-8.0) Ur Specific [place] 1.023 (1.001-1.035) Urine Protein Trace H (Negative) Urine Glucose (UA) Negative (Negative) Urine Ketones Trace H (Negative) Urine Blood Negative (Negative) Urine Nitrite Negative (Negative) Urine Bilirubin Negative (Negative) Urine Urobilinogen 4.0 (<2.0) mg/dL Ur Leukocyte Esterase Moderate H (Negative) Urine RBC 1 (0-5) /hpf Urine WBC 58 H (0-5) /hpf Urine WBC Clumps Rare H (None) /hpf Ur Squamous Epith Cells 1 (0-4) /hpf Urine Bacteria Rare H (None) /hpf Hyaline Casts 1 (0-2) /lpf Urine Mucus Many H (None) /hpf Disposition <Carlos Alberto Villasenor - Last Filed: 02/07/25 21:56> Is patient prescribed a controlled substance at d/c from ED?: No <Jigna Bower - Last Filed: 02/08/25 09:08> Clinical Impression: Nausea & vomiting, Dehydration, Hypokalemia, Hyponatremia Disposition: HOME SELF-CARE Condition: Stable Instructions (If sedation given, give patient instructions): Dehydration (ED), Urinary Tract Infection in Men (ED), Acute Nausea and Vomiting (ED) Additional Instructions: Every disease is a spectrum and a small chance still exists that a serious cond ition could develop, for this reason, please monitor yourself closely for new, changing or worsening symptoms, symptoms that persist into the morning/beyond an additional 8 hours, lightheadedness or dizziness, sudden worsening of your pain, low back pain, flank pain or pain with urination fever, inability to tolerate/keep down fluids or your medications, inability to follow up with outpatient providers as instructed and should you experience these symptoms or should you have any further concerns for your wellbeing please return to the ED or call 911 immediately. If patient symptoms have not improved in the morning please return to the ER immediately please have patient drink plenty of fluids upon return home and including electrolyte rich fluid such as Gatorade and Pedialyte PLEASE call your primary care physician as soon as possible to arrange / discuss plan for followup appointment. Appointment in the next 1-3 days is strongly encouraged if possible. PLEASE let us know here before you leave if there is anything further we can do to be of any assistance. Take care and feel Better! Prescriptions: Cephalexin [Keflex] 500 mg PO Q6HR 10 Days #40 cap Referrals: Markie Thompson [Primary Care Provider] - 1-2 days
[2025-02-07 22:58] LABS: INR 1.3 (<1.2); Prothrombin Time 13.5 sec (10.0-12.5)
[2025-02-07 23:33] LABS: Partial Thromboplastin Time 21.7 sec (22.0-30.0)
[2025-02-08] LABS: Bilirubin,Urine Negative (Negative); Color,Urine Yellow; Glucose,Urine (UA) Negative (Negative); Ketones,Urine Trace (Negative); PH, Urine 6.0 (5.0-8.0); Protein,Urine Trace (Negative); Specific Gravity,Urine 1.023 (1.001-1.035)
[2025-02-08 00:01] LABS: Bacteria,Urine Rare /hpf; Blood,Urine Negative (Negative); Hyaline Casts,Urine 1 /lpf (0-2); Leukocyte Esterase,Urine Moderate (Negative); Mucus,Urine Many /hpf; Nitrite,Urine Negative (Negative); RBC,Urine 1 /hpf (0-5); Squamous Epithelial Cell,Urine 1 /hpf (0-4); Urobilinogen,Urine 4.0 mg/dL (<2.0); WBC,Urine 58 /hpf (0-5)
[2025-02-08] MEDS: SODIUM CHLORIDE 0.9% 1,000 ML IV ONE ×2 (00:11)
--- NOTE | 2025-02-08 00:12 | XR ---
EXAM: XR Chest, 2 Views CLINICAL HISTORY: Confusion, lethargy TECHNIQUE: Frontal and lateral views of the chest. COMPARISON: 02/06/2025 FINDINGS: Lungs: Lungs are underinflated but clear. No consolidation. Pleural space: Unremarkable. Mediastinum: Unremarkable. Normal mediastinal contour. Bones/joints: No acute findings. Upper abdomen: Persistent dilatation of loops of small bowel across central upper abdomen, similar on the comparison study. IMPRESSION: No acute findings or substantial change.
[2025-02-08] MEDS: ONDANSETRON 4 MG ODT STARTER PACK 2 TAB BTL PO STA (00:14)
[2025-02-08] MEDS: CEPHALEXIN 500MG STARTER PACK 4 CAP BTL PO STA (00:14)
[2025-02-08 00:18] VITALS: BP 121/87; PULSE 110; RESP 16; TEMP 98.7
== END 2025-02-08 00:18 | disposition home or self-care (01) ==
LOC: EC 21:11
DX: R11.2 Nausea with vomiting, unspecified (principal); E86.0 Dehydration; E87.1 Hypo-osmolality and hyponatremia; E87.6 Hypokalemia
CPT/HCPCS: 36415; 93005; 80053; 82150; 83605; 83690; 84484; 85025; 85610; 85730; 81001; 87086; 71046; 99284; S0119

== ENCOUNTER 2025-02-10 10:52 | Emergency (ER) | payer OTHER ==
[2025-02-10 10:58] VITALS: TEMP 98.3
--- NOTE | 2025-02-10 11:25 | ED ---
General Adult HPI - General Chief complaint: Nausea/Vomiting/Diarrhea Stated complaint: Vomiting Time Seen by Provider: 02/10/25 10:55 Source: patient, RN notes reviewed, old records reviewed Mode of arrival: ambulatory - History of Present Illness Initial comments: This is a 64-year-old male who presents to the emergency department today without complaint. Patient states he vomited yesterday and today when he woke up his caregiver wanted him to be evaluated so sentiment to the hospital. Patient's was sent in with one of the caregivers employees and he stated that caregiver was concerned about the color of his face and the fact that he vomited the last couple of days. Patient has been to the ER on the was here till the first and was here again on the second. Patient denies any chest pain or palpitations Patient denies difficulty breathing patient denies any nausea or vomiting today. Patient Nuys any diarrhea. Patient Nuys any abdominal pain - Related Data Previous Rx's Medication Instructions Recorded Cephalexin [Keflex] 500 mg PO Q6HR 10 Days #40 cap 02/08/25 Allergies Allergy/AdvReac Type Severity Reaction Status Date / Time No Known Allergies Allergy Verified 02/10/25 10:58 Review of Systems ROS Statement: Those systems with pertinent positive or pertinent negative responses have been documented in the HPI. ROS Other: All systems not noted in ROS Statement are negative. Past Medical History Past Medical History: Renal Disease History of Any Multi-Drug Resistant Organisms: None Reported Past Surgical History: No Surgical Hx Reported, Orthopedic Surgery Past Psychological History: No Psychological Hx Reported Smoking Status: Never smoker Past Alcohol Use History: None Reported Past Drug Use History: None Reported General Exam - General Exam Comments Initial Comments: GENERAL: Patient is well-developed and well-nourished. Patient is nontoxic and well- hydrated and is in no acute distress. ENT: Neck is soft and supple. No significant lymphadenopathy is noted. Oropharynx is clear. Moist mucous membranes. Neck has full range of motion without eliciting any pain. EYES: The sclera were anicteric and conjunctiva were pink and moist. Extraocular movements were intact and pupils were equal round and reactive to light. Eyelids were unremarkable. PULMONARY: Unlabored respirations. Good breath sounds bilaterally. No audible rales rhonchi or wheezing was noted. CARDIOVASCULAR: There is a regular rate and rhythm without any murmurs gallops or rubs. ABDOMEN: Soft and nontender with normal bowel sounds. SKIN: Skin is clear with no lesions or rashes and otherwise unremarkable. NEUROLOGIC: Patient is alert and oriented x3. Cranial nerves II through XII are grossly intact. Motor and sensory are also intact. Normal speech, volume and content. Symmetrical smile. MUSCULOSKELETAL: Normal extremities with adequate strength and full range of motion. LYMPHATICS: No significant lymphadenopathy is noted PSYCHIATRIC: Normal psychiatric evaluation. Course Vital Signs 02/10/25 10:53 Temperature 98.3 F Pulse Rate 104 H Respiratory 18 Rate Blood Pressure 107/75 O2 Sat by Pulse 99 Oximetry Medical Decision Making - Medical Decision Making Was pt. sent in by a medical professional or institution (, [employer], TECHNICAL SALES MANAGER, urgent care, hospital, or intermediate...) When possible be specific @ -No Did you speak to anyone other than the patient for history (EMS, parent, family, police, friend...)? What history was obtained from this source @ -No Did you review nursing and triage notes (agree or disagree)? Why? @ -I reviewed and agree with nursing and triage notes Were old charts reviewed (outside hosp., previous admission, EMS record, old EKG, old radiological studies, urgent care reports/EKG's, intermediate records)? Report findings @ -No old charts were reviewed Differential Diagnosis? @ -Hyponatremia, hypokalemia, anemia, not all-inclusive list. EKG interpreted by me (3pts min.). @ -As above X-rays interpreted by me (1pt min.). @ -None done CT interpreted by me (1pt min.). @ -None done U/S interpreted by me (1pt. min.). @ -None done What testing was considered but not performed or refused? (CT, X-rays, U/S, labs)? Why? @ -None What meds were considered but not given or refused? Why? @ -None Did you discuss the management of the patient with other professionals (concepción iwlson i.e. , [employer], TECHNICAL SALES MANAGER, lab, RT, psych nurse, geriatric social work professor, secretary office clerk, teacher, dairy quality assurance officer, vocational case manager)? Give summary @ -No Was smoking cessation discussed for >3mins.? @ -No Was critical care preformed (if so, how long)? @ -No Were there social determinants of health that impacted care today? How? (Homelessness, low income, unemployed, alcoholism, drug addiction, transportation, low edu. Level, literacy, decrease access to med. care, assisted, rehab)? @ -No Was there de-escalation of care discussed even if they declined (Discuss DNR or withdrawal of care, Hospice)? DNR status @ -No What co-morbidities impacted this encounter? (DM, HTN, Smoking, COPD, CAD, Cancer, CVA, ARF, Chemo, Hep., AIDS, mental health diagnosis, sleep apnea, morbid obesity)? @ -None Was patient admitted / discharged? Hospital course, mention meds given and route, prescriptions, significant lab abnormalities, going to OR and other pertinent info. @ -Patient was asymptomatic throughout the ED course lab work was not concerning at this point and since the patient is asymptomatic to be discharged home Undiagnosed new problem with uncertain prognosis? @ -No Drug Therapy requiring intensive monitoring for toxicity (Heparin, Nitro, Insulin, Cardizem)? @ -No Were any procedures done? @ -No Diagnosis/symptom? @ -Nausea and vomiting Acute, or Chronic, or Acute on Chronic? @ -Acute Uncomplicated (without systemic symptoms) or Complicated (systemic symptoms)? @ -Uncomplicated Side effects of treatment? @ -No Exacerbation, Progression, or Severe Exacerbation? @ -No Poses a threat to life or bodily function? How? (Chest pain, [place], [place], pneumonia, PE, COPD, DKA, ARF, appy, cholecystitis, CVA, Diverticulitis, Homicidal, Suicidal, threat to staff... and all critical care pts) @ -No - Lab Data Result diagrams: 02/10/25 11:30 02/10/25 11:30 Lab Results 02/10/25 02/10/25 Range/Units 11:30 11:30 WBC 11.61 H (4.50-10.00) 10*3/uL RBC 3.94 L (4.40-5.60) 10*6/uL Hgb 12.0 L (13.0-17.0) g/dL Hct 33.1 L (39.6-50.0) % MCV 84.0 (80.0-97.0) fL MCH 30.5 (27.0-32.0) pg MCHC 36.3 (32.0-37.0) g/dL Plt Count 298 (140-440) 10*3/uL MPV 9.5 (9.5-12.2) fL Immature Gran % (Auto) 4.7 % Neutrophils % 72.6 % Lymphocytes % 12.4 % Monocytes % 8.4 % Eosinophils % 1.2 % Basophils % 0.7 % Immature Gran # 0.55 H (0.00-0.04) 10*3/uL Neutrophils # 8.42 H (1.80-7.70) 10*3/uL Lymphocytes # 1.44 (0.90-5.00) 10*3/uL Monocytes # 0.98 (0.20-1.00) 10*3/uL Eosinophils # 0.14 (0.04-0.35) 10*3/uL Basophils # 0.08 (0.00-0.10) 10*3/uL Sodium 133 L (137-145) mmol/L Potassium 3.5 (3.5-5.1) mmol/L Chloride 99 (98-107) mmol/L Carbon Dioxide 25 (22-30) mmol/L Anion Gap 9 mmol/L BUN 10 (9-20) mg/dL Creatinine 0.61 L (0.66-1.25) mg/dL Est GFR (CKD-EPI)AfAm >90 (>60 ml/min/1.73 sqM) Est GFR (CKD-EPI)NonAf >90 (>60 ml/min/1.73 sqM) Glucose 122 H (74-99) mg/dL Calcium 8.2 L (8.4-10.2) mg/dL Total Bilirubin 0.4 (0.2-1.3) mg/dL AST 25 (17-59) U/L ALT 29 (4-49) U/L Alkaline Phosphatase 69 (38-126) U/L Total Protein 5.0 L (6.3-8.2) g/dL Albumin 2.5 L (3.5-5.0) g/dL Disposition Clinical Impression: Nausea & vomiting Disposition: HOME SELF-CARE Instructions (If sedation given, give patient instructions): Acute Nausea and Vomiting (ED) Is patient prescribed a controlled substance at d/c from ED?: No Referrals: Markie Thompson [Primary Care Provider] - 1-2 days Time of Disposition: 13:15
[2025-02-10 11:38] LABS: Basophils # (A) 0.08 10*3/uL (0.00-0.10); Basophils % (A) 0.7 %; Eosinophils # (A) 0.14 10*3/uL (0.04-0.35); Eosinophils % (A) 1.2 %; HCT 33.1 % (39.6-50.0); HGB 12.0 g/dL (13.0-17.0); Lymphocytes # (A) 1.44 10*3/uL (0.90-5.00); Lymphocytes % (A) 12.4 %; MCH 30.5 pg (27.0-32.0); MCHC 36.3 g/dL (32.0-37.0); MCV 84.0 fL (80.0-97.0); Monocytes # (A) 0.98 10*3/uL (0.20-1.00); Monocytes % (A) 8.4 %; Neutrophils # (A) 8.42 10*3/uL (1.80-7.70); Neutrophils % (A) 72.6 %; Platelet Count 298 10*3/uL (140-440); RBC 3.94 10*6/uL (4.40-5.60); RDW 12.3 % (11.5-14.5); WBC 11.61 10*3/uL (4.50-10.00)
[2025-02-10 11:47] LABS: ALT 29 U/L (4-49); AST 25 U/L (17-59); African American GFR (CKD) >90 (>60 ml/min/1.73 sqM); Albumin 2.5 g/dL (3.5-5.0); Alkaline Phosphatase 69 U/L (38-126); Anion Gap 9 mmol/L; Blood Urea Nitrogen 10 mg/dL (9-20); Calcium 8.2 mg/dL (8.4-10.2); Carbon Dioxide 25 mmol/L (22-30); Chloride 99 mmol/L (98-107); Glucose 122 mg/dL (74-99); Non-African American GFR(CKD) >90 (>60 ml/min/1.73 sqM); Potassium 3.5 mmol/L (3.5-5.1); Sodium 133 mmol/L (137-145); Total Protein 5.0 g/dL (6.3-8.2)
[2025-02-10 13:26] VITALS: BP 106/76; PULSE 94; RESP 20
== END 2025-02-10 13:26 | disposition home or self-care (01) ==
LOC: EEVIPCON 10:52 → EC 10:52
DX: R11.2 Nausea with vomiting, unspecified (principal)
CPT/HCPCS: 36415; 80053; 85025; 99284